=== PATIENT | male | born 1960 | race Caucasian/White ===

== ENCOUNTER 2017-04-22 10:28 | Day surgery (SDC) | payer OTHER ==
[~2017-04-22] VITALS: Ht 172.7 cm; Wt 89.0 kg
[~2017-04-22 10:28] MED LIST: OXYACE5T PO; RXOXYACE PO; TOBR.3OPSO OP; TYLENOL; VALA500 PO
[2017-04-22] MEDS ORDERED: Aspirin EC81 MG PO (11:24)
== END 2017-04-22 16:15 | disposition home or self-care (01) ==
LOC: MHTC 10:28
PROC: B2111ZZ Fluoroscopy of Multiple Coronary Arteries using Low Osmolar Contrast (ICD-10-PCS; principal; 2017-04-22)
DX: I71.9 Aortic aneurysm of unspecified site, without rupture (principal); Q23.1 Congenital insufficiency of aortic valve; I25.10 Atherosclerotic heart disease of native coronary artery without angina pectoris; K21.9 Gastro-esophageal reflux disease without esophagitis; E78.5 Hyperlipidemia, unspecified; G47.33 Obstructive sleep apnea (adult) (pediatric); F17.220 Nicotine dependence, chewing tobacco, uncomplicated; Z79.899 Other long term (current) drug therapy; Z79.82 Long term (current) use of aspirin
CPT/HCPCS: 93454; 99152; 99153; C1769; C1894; J1644; J2250; J3010; J7030; Q9967

== ENCOUNTER 2017-05-22 11:48 | Inpatient (IN) | payer OTHER ==
[~2017-05-22] VITALS: Ht 172.7 cm; Wt 88.0 kg
[~2017-05-22 11:48] MED LIST changes: +Aspirin EC81 MG PO
[2017-05-22] MEDS ORDERED: ATOR80 PO (13:32)
[2017-05-22] MEDS ORDERED: MULTI VITAMIN1 EACH PO (13:33)
[2017-05-22] MEDS ORDERED: ASCO500 (13:33)
[2017-05-22] MEDS ORDERED: FOLI1 PO (13:33)
[2017-05-23] MEDS ORDERED: COLCRYS0.6 MG PO (11:23)
[2017-05-23] MEDS ORDERED: IBUP400 PO (11:23)
== END 2017-05-23 12:30 | disposition home or self-care (01) | DRG 316 ==
LOC: ECHO 11:48 → ICUE 13:08
PROC: 0W9D30Z Drainage of Pericardial Cavity with Drainage Device, Percutaneous Approach (ICD-10-PCS; principal; 2017-05-22)
DX: I31.3 Pericardial effusion (noninflammatory) (principal); I31.4 Cardiac tamponade; I35.8 Other nonrheumatic aortic valve disorders; I25.10 Atherosclerotic heart disease of native coronary artery without angina pectoris; G89.29 Other chronic pain; M54.9 Dorsalgia, unspecified; Z95.2 Presence of prosthetic heart valve; Z95.1 Presence of aortocoronary bypass graft; Z79.82 Long term (current) use of aspirin; Z79.899 Other long term (current) drug therapy
CPT/HCPCS: 33010; 71275; 76930; 93005; 93010; 93306; 93308; 93321; C1769; J1885; J2250; J3010; Q9967

== ENCOUNTER → 2020-06-22 | Outpatient (CLI) | payer OTHER ==
[~2020-06-22] MED LIST changes: +ASCO500; +ATOR80 PO; +COLCRYS0.6 MG PO; +FOLI1 PO; +IBUP400 PO; +MULTI VITAMIN1 EACH PO
== END | disposition home or self-care (01) ==
LOC: LAB 19:42 → LAB SHORT 19:42
DX: N39.0 Urinary tract infection, site not specified (principal)
CPT/HCPCS: 87077; 87086; 87186